=== PATIENT | female | born 1955 | race Caucasian/White ===

== ENCOUNTER 2018-06-01 14:27 | Emergency (ER) | payer MEDICAID ==
[~2018-06-01] VITALS: Ht 152.4 cm; Wt 124.7 kg
[~2018-06-01 14:27] MED LIST: CORDROL20 MG PO; CYMBALTA30 MG PO; FOLIC ACID1 MG PO; FOSAMAX70 MG PO; LISINOPRIL5 MG PO; MELOXICAM7.5 MG PO; METHOTREXATE2.5 M1 PO; METOPROLOL SR100 MG PO; METOPROLOL SR50 MG PO; MOTRIN800 MG PO; OXYCONTIN10 MG PO; PERCOCET 325 MG1 TA2 PO; PLAQUENIL200 MG PO; PRAD75 PO; SYNTHROID0.025 MG PO; VICODIN ES 7501 TA1 PO; VITAMIN D50000 I2 PO
[2018-06-01 19:02] LABS: BASO % 0.4 % (0.0-1.0); EOS % 0.1 % (1.0-4.0); HEMOGLOBIN 11.5 g/dl (12.0-16.0); LYMPH # 0.8 10*3/uL (1.3-4.4); LYMPH % 10.2 % (27.0-41.0); MEAN CELL VOLUME 95.2 fl (81.0-99.0); MEAN CORPUSCULAR HGB 30.4 pg (27.0-31.0); MEAN CORPUSCULAR HGB CONC 31.9 g/dl (33.0-37.0); MEAN PLATELET VOLUME 10.3 fl (9.6-12.3); MONO # 0.4 10*3/uL (0.1-1.0); MONO % 4.3 % (3.0-9.0); NEUT # 6.8 10*3/uL (2.3-7.9); NEUT % 84.9 % (47.0-73.0); PLATELET COUNT AUTOMATED 163 10*3/uL (130-400); RED BLOOD COUNT 3.78 10*6/uL (4.10-5.10); RED CELL DISTRI WIDTH 14.2 % (0-14.5); WHITE BLOOD COUNT 8.1 10*3/uL (4.8-10.8)
[2018-06-01 19:13] LABS: ACT PARTIAL THROMBO TIME 22.9 SECONDS (20.8-31.5)
[2018-06-01 19:19] LABS: ALBUMIN 3.8 gm/dl (3.1-4.5); ALKALINE PHOSPHATASE 79 U/L (45-117); BUN 31 mg/dl (7-24); CHLORIDE 111 mmol/L (98-107); CREATININE 1.09 mg/dL (0.55-1.02); POTASSIUM 4.7 mmol/L (3.5-5.1); SGOT/AST 21 IU/L (3-35); SGPT/ALT 18 U/L (12-78); SODIUM 141 mmol/L (136-145); TOTAL PROTEIN 7.2 gm/dL (6.4-8.2)
== END 2018-06-01 17:50 | disposition short-term general hospital (02) ==
LOC: ED 14:27
PROVIDERS: Nurse Practitioner Family
DX: I77.89 Other specified disorders of arteries and arterioles (principal); Z79.899 Other long term (current) drug therapy

== ENCOUNTER 2019-10-16 09:59 | Emergency (ER) | payer MEDICAID ==
[~2019-10-16] VITALS: Ht 152.4 cm; Wt 119.1 kg
--- NOTE | ~2019-10-16 | EKG ---
[place], [place] ELECTROCARDIOGRAM REPORT NAME: SUMAN CAMACHO UNIT #: [id number] ROOM: DOCTOR: DONOVAN DRAFT REPORT BIRTHDATE: [birth year] [facility] Test Date: 2019-10-16 Test Time: 10:47:13 Pat Name: SUMAN CAMACHO Department: Room: Gender: F Brim Stitcher: REGINALD : 1955 Requested By: EVELYN GILLETTE Order Number: [id number] Reading MD: Celso Solis MD Measurements Intervals Aubrey Rate: 83 P: CT: QRS: -5 QRSD: 130 T: -24 QT: 410 QTc: 482 Interpretive Statements Afib/flut and V-paced complexes No further rhythm analysis attempted due to paced rhythm Nonspecific intraventricular conduction delay Borderline repolarization abnormality No previous ECG available for comparison Electronically Signed On 10-17-2019 14:39:41 PST by Celso Solis MD CM:EKGRPT:ELECTROCARDIOGRAM REPORT [id number] EVELYN MAN DRAFT REPORT EVELYN BENZ
[2019-10-16 11:00] LABS: BASO % 0.2 % (0.0-1.0); EOS % 0.1 % (1.0-4.0); HEMATOCRIT 37.1 % (37.0-47.0); HEMOGLOBIN 11.9 g/dl (12.0-16.0); LYMPH # 0.6 10*3/uL (1.3-4.4); LYMPH % 7.6 % (27.0-41.0); MEAN CELL VOLUME 91.2 fl (81.0-99.0); MEAN CORPUSCULAR HGB 29.2 pg (27.0-31.0); MEAN CORPUSCULAR HGB CONC 32.1 g/dl (33.0-37.0); MEAN PLATELET VOLUME 10.3 fl (9.6-12.3); MONO # 0.4 10*3/uL (0.1-1.0); MONO % 5.2 % (3.0-9.0); NEUT # 7.3 10*3/uL (2.3-7.9); NEUT % 86.5 % (47.0-73.0); PLATELET COUNT AUTOMATED 247 10*3/uL (130-400); RED BLOOD COUNT 4.07 10*6/uL (4.10-5.10); RED CELL DISTRI WIDTH 13.9 % (0-14.5); WHITE BLOOD COUNT 8.5 10*3/uL (4.8-10.8)
[2019-10-16 11:16] LABS: ALBUMIN 3.5 gm/dl (3.1-4.5); ALKALINE PHOSPHATASE 108 U/L (45-117); BUN 21 mg/dl (7-24); CHLORIDE 106 mmol/L (98-107); CREATININE 0.88 mg/dL (0.55-1.02); LIPASE 44 U/L (73-393); POTASSIUM 3.6 mmol/L (3.5-5.1); SGOT/AST 17 IU/L (3-35); SGPT/ALT 16 U/L (12-78); SODIUM 139 mmol/L (136-145); TOTAL PROTEIN 7.8 gm/dL (6.4-8.2)
[2019-10-16 11:17] LABS: ACT PARTIAL THROMBO TIME 24.2 SECONDS (20.0-32.1); TROPONIN I < 0.015 ng/ml (<0.045)
[2019-10-16 11:50] LABS: BILIRUBIN NEGATIVE (NEGATIVE); BLOOD TRACE-INTACT (NEGATIVE); CLARITY CLOUDY (CLEAR); COLOR YELLOW (YELLOW); GLUCOSE NEGATIVE (NEGATIVE); KETONE TRACE (NEGATIVE); LEUKO ESTERASE 2+ (NEGATIVE); NITRITE NEGATIVE (NEGATIVE); UROBILINOGEN 0.2 E.U./dl (0.2-1.0)
[2019-10-16 12:07] LABS: WBC TNTC wbc/hpf (0-5)
[2019-10-16 12:08] LABS: BACTERIA 2+
== END 2019-10-16 16:09 ==
LOC: ED 09:59
PROVIDERS: Physician Assistant
DX: I63.9 Cerebral infarction, unspecified (principal); R10.32 Left lower quadrant pain; R11.2 Nausea with vomiting, unspecified; R42 Dizziness and giddiness; I10 Essential (primary) hypertension; K21.9 Gastro-esophageal reflux disease without esophagitis; I48.91 Unspecified atrial fibrillation; Z79.899 Other long term (current) drug therapy

== ENCOUNTER → 2021-09-23 | Outpatient (CLI) | payer MEDICAID | END | disposition home or self-care (01) | LOC: MAMMO 09-20 09:00 | PROVIDERS: ATTEND Internal Medicine | DX: Z12.31 Encounter for screening mammogram for malignant neoplasm of breast (principal); N64.89 Other specified disorders of breast ==

== ENCOUNTER 2022-07-08 11:25 | Emergency (ER) | payer MEDICAID ==
[~2022-07-08] VITALS: Wt 125.8 kg
[~2022-07-08 11:25] MED LIST changes: +ASPIRIN CHEWABL81 MG PO; +ATORVASTATIN CA40 M1 PO; +CEFUROXIME AXE500 MG PO; +CELEBREX100 MG PO; +Oscal,Oyster S500 MG PO; +PREDNISONE5 MG PO; +SYNTHROID25 MCG PO; +XARE20MG PO; +XELJANZ XR11 MG PO; +ZOFRAN4 MG PO
[2022-07-08 11:50] LABS: BASO % 0.5 % (0.0-1.0); EOS # 0.1 10*3/uL (0.0-0.4); EOS % 1.3 % (1.0-4.0); HEMATOCRIT 38.4 % (37.0-47.0); LYMPH % 13.2 % (27.0-41.0); MEAN CELL VOLUME 90.1 fl (81.0-99.0); MEAN CORPUSCULAR HGB 28.4 pg (27.0-31.0); MEAN CORPUSCULAR HGB CONC 31.5 g/dl (33.0-37.0); MEAN PLATELET VOLUME 9.8 fl (9.6-12.3); MONO # 0.4 10*3/uL (0.1-1.0); MONO % 5.4 % (3.0-9.0); NEUT % 79.5 % (47.0-73.0); PLATELET COUNT AUTOMATED 262 10*3/uL (130-400); RED BLOOD COUNT 4.26 10*6/uL (4.10-5.10); RED CELL DISTRI WIDTH 14.1 % (0-14.5); WHITE BLOOD COUNT 7.6 10*3/uL (4.8-10.8)
[2022-07-08 12:01] LABS: ACT PARTIAL THROMBO TIME 22.2 SECONDS (20.0-32.1)
[2022-07-08 12:10] LABS: CHLORIDE 112 mmol/L (98-107); CREATININE 0.88 mg/dL (0.55-1.02); POTASSIUM 3.8 mmol/L (3.5-5.1); SGOT/AST 14 IU/L (3-35); SGPT/ALT 16 U/L (12-78); SODIUM 141 mmol/L (136-145); TOTAL PROTEIN 7.3 gm/dL (6.4-8.2)
[2022-07-08 12:11] LABS: ALKALINE PHOSPHATASE 70 U/L (45-117); BUN 28 mg/dl (7-24)
== END 2022-07-08 15:41 | disposition short-term general hospital (02) ==
LOC: ED 11:25
PROVIDERS: Emergency Medicine
DX: I21.4 Non-ST elevation (NSTEMI) myocardial infarction (principal); I48.91 Unspecified atrial fibrillation; K21.9 Gastro-esophageal reflux disease without esophagitis; I10 Essential (primary) hypertension; Z79.899 Other long term (current) drug therapy; Z79.82 Long term (current) use of aspirin